=== PATIENT | female | born 1985 | race Caucasian/White ===

== ENCOUNTER → 2016-04-30 | Outpatient (CLI) | payer BC | END | disposition home or self-care (01) | LOC: C.PAPS 09:50 | PROVIDERS: ATTEND Obstetrics & Gynecology | DX: Z01.419 Encounter for gynecological examination (general) (routine) without abnormal findings (principal) ==

== ENCOUNTER → 2017-05-13 | Outpatient (CLI) | payer BC | END | disposition home or self-care (01) | LOC: C.PAPS 09:25 | PROVIDERS: ATTEND Physician Assistant | DX: Z01.419 Encounter for gynecological examination (general) (routine) without abnormal findings (principal) ==

== ENCOUNTER 2018-12-29 09:46 | Inpatient (IN) ==
[2018-12-29] MEDS ORDERED: OXYTOCIN 30 UNITS/500 ML BAG IV PRN ×3 (10:38→20:11)
[2018-12-29] MEDS: LACTATED RINGER'S 1,000 ML IV PRN ×3 (10:45→18:55)
[2018-12-29] MEDS ORDERED: fentaNYL citrate 100 MCG/2 ML VIAL ONE (10:47)
[2018-12-29] MEDS ORDERED: ePHEDrine sulfate 50 MG/ML AMP ONE (10:47)
[2018-12-29] MEDS ORDERED: fentaNYL 2MCG/ML ROPIV 1.25MG/ML 100 ML BAG EPI ONE (10:48)
[2018-12-29] MEDS ORDERED: BUPIVACAINE 0.25% 30 ML VIAL ONE (10:48)
[2018-12-29] MEDS ORDERED: PENICILLIN G POTASSIUM 6 MU in DEXTROSE 5% 250 ML IV STA (10:58)
[2018-12-29 11:03] LABS: Hematocrit (blood only) 35.7 % (37-47); Hemoglobin 12.9 g/dL (12.0-16.0); Mean Corpuscular Hemoglobin 35.2 pg (25-34); Mean Corpuscular Volume 97.5 fL (80-100); Mean Platelet Volume 9.7 fL (7.4-10.4); Platelet Count 160 K/uL (130-400); RDW Coefficient of Variation 13.3 % (11.5-14.5); RDW Standard Deviation 46.9 fL (36.4-46.3); Red Blood Count 3.66 M/uL (4.2-5.4); White Blood Count 12.06 K/uL (4.8-10.8)
--- NOTE | 2018-12-29 11:04 | History & Physical Report ---
Date of Service December 29, 2018 History of Present Illness Primary Care Provider: NO PCP 39w2d confirmed via LMP. Here for SROM today at 7AM, confirmed ferning on microscopy in hospital. No complications with current . Has been attending OB appointments regularly. Currently taking no medications other than vitamin. No chronic medical conditions. Previous vaginal delivery with no complications 4 years ago. No major surgeries. Hx of IVF treatments. Plan: Penicillin for GBS+ status, patient requested Epidural. Admitted to monitor progress; expect . Contractions: occurring every 4 minutes Fluid or Blood loss: gush of clear fluid loss this AM Movement: active Labs Blood type: B- Antibody screen: negative H.9 Hct: 35.7 Wbc: 12 Plt: 160 Rubella: immune VDRL/RPR: nonreactive Gonorrhea: neg Chlamydia: neg HIV: neg HBsAg: neg GBS: positive Glucose tolerance x2: failed second 50g test, WNL for 2 hour GTT Allergies Allergy/AdvReac Type Severity Reaction Status Date / Time amoxicillin AdvReac Mild GI SYMPTOMS Verified 12/29/18 10:05 Patient History Medical History Carrier of fragile X chromosome Infertility IVF X 2 History of cleft lip 1st son had- corrective surgery completed History of ovarian cyst History of varicella as a child Need for rhogam due to Rh negative mother Status post hysteroscopy Surgical History No history of previous surgery Family History Son Cleft lip and cleft palate, unspecified Grandmother (Paternal) Colorectal cancer Father Hypertension Grandmother (Maternal) Uterine cancer Mother Multiple gestation Social History Preferred Language: [place] Medical Parasitologist Required: No Beliefs That Will Affect Care: None marital status: Current Living Situation: Spouse and Family Current Living Situation Comment: lives with and son Other Information That Helps Us Care for You: No Feels Safe at Home: Yes Safety Concerns: Feels Safe At This Time Smoking Status: Never smoker Hx Alcohol Use: No Hx Substance Use: No Review of Systems no fever, no chills and no fatigue no cough, no dyspnea and no wheezing + edema; no chest pain and no calf pain no abdominal pain, no nausea, no vomiting, no cramping, no constipation and no diarrhea/loose stools no dysuria and no difficulty urinating no back pain no seizure-like activity and no headache(s) Physical Exam Constitutional: well developed and well nourished Respiratory: normal respiratory effort; no respiratory distress, no labored breathing and no cough Auscultation: no diminished lung sounds, no crackles, no rales, no rhonchi and no wheezes Cardiovascular: Rate/Rhythm: regular rate and regular rhythm Extremities: normal capillary refill and + pedal edema; no calf tenderness Gastrointestinal (Abdomen): Inspection/Auscultation: + abdomen distended and normal bowel sounds Percussion/Palpation: abdomen nontender and no guarding Genitourinary: Manual OB Exam: + cervical dilation 5 cm, + cervical effacement 100%, + station -1 and + amniotic fluid clear and ferning present OB Exam Monitor Tracing: + external FHT monitor used and + category I Cervical Exam per Dr. Hodge Results & Data Vital Signs (Past 12 Hours) Vital Signs Temp Resp 12/29/18 09:59 36.8 C 18 Monitoring External Monitor Category I heart tracing baseline HR 130-140 Moderate variability Accelerations present, No decelerations Tocodynamometer contractions every 3-4 minutes Supervising Physician Co-Signing Physician Notes Resident Physician Supervision Note: I interviewed and examined the patient. Discussed with Dr. Diamond and agree with findings and plan as documented in the note. Any exceptions or clarifications are listed here: with hx of previous , at term with rom. GBS +. Fetus category one. Admit. epidural on demand, arom of forebag, pitocin if indicated. Anticipate . Documented By: Griselda Hodge MD, FACOG Resident Activity Tracking Resident Involvement: Resident Care Provided Care Provided: OB Delivery
[2018-12-29 11:06] LABS: Mean Corpuscular Hgb Conc 36.1 g/dL (32-36)
--- NOTE | 2018-12-29 11:30 | Anesthesiology Consultation ---
Date of Service December 29, 2018 Assessment & Plan Chart Review Chart Review: Patient NOT seen in Pre Admission Testing and Acceptable Risk for Labor Epidural Consults Requested none ASA ASA2 Proposed Anesthesia Anesthesia Type: Labor Epidural and CSE Risk / Benefits Reviewed With: PT / POA / Parent / Guardian, Accepts Plan and Informed Consent Obtained History Height/Weight Height: 5 ft 5 in Weight: 84.822 kg Allergies Allergy/AdvReac Type Severity Reaction Status Date / Time amoxicillin AdvReac Mild GI SYMPTOMS Verified 12/29/18 10:05 Medications Home Medications Medication Instructions Recorded Confirmed Last Taken PNV cmb#95-ferrous fumarate-FA 1 tab PO DAILY 12/29/18 12/29/18 12/28/18 20:00 [] Active Medications Generic Name Dose Route Start Last Admin Trade Name Freq PRN Reason Stop Dose Admin Lactated Ringer's 1,000 mls @ 125 mls/hr 12/29/18 10:38 12/29/18 10:45 Lr IV 12/31/18 10:37 999 mls/hr .Q8H PRN Administration L&D Protocol Protocol Penicillin G Potassium 6 mu/ 262 mls @ 262 mls/hr 12/29/18 10:58 12/29/18 11:13 Dextrose IV 12/29/18 11:57 262 mls/hr NOW STA Administration NPO Date Last Intake of Fluids: 12/29/18 Time Last Intake of Fluids: 10:00 Date Last Intake of Solids: 12/29/18 Time Last Intake of Solids: 08:30 Past Medical History Medical History Carrier of fragile X chromosome Infertility IVF X 2 History of cleft lip 1st son had- corrective surgery completed History of ovarian cyst History of varicella as a child Need for rhogam due to Rh negative mother Status post hysteroscopy Exercise / Class Metabolic Activity II 4-5 Yardwork/Stairs/Walk up hill Past Family History Family History Son Cleft lip and cleft palate, unspecified Grandmother (Paternal) Colorectal cancer Father Hypertension Grandmother (Maternal) Uterine cancer Mother Multiple gestation Past Surgical History Surgical History No history of previous surgery Past Anesthesia History No Hx of Anesthesia Complications and No Family Hx of Anesthesia Complications History of PONV No Hx of PONV and No Hx of Motion Sickness Social History Smoking Status: Never smoker Hx Alcohol Use: No Hx Substance Use: No substance use type: does not use Review of Systems no chest pain or sob Physical Exam Vital Signs Last Vital Signs Temp 36.8 C 12/29/18 09:59 Pulse 93 H 12/29/18 11:29 Resp 18 12/29/18 09:59 BP 122/80 12/29/18 09:55 Pulse Ox 100 12/29/18 11:29 ENMT Mouth: no TMJ abnormality Thyromental Distance: > or= 3.5 Finger Breadths Mallampati Class: II Neck normal visual inspection Respiratory normal respiratory effort Auscultation: lungs clear to auscultation bilaterally Cardiovascular Rate/Rhythm: regular rate and regular rhythm Musculoskeletal Spine: normal cervical ROM Neurologic moves all extremities Psychiatric Orientation: alert and oriented x 3 Testing Laboratory Results 12/29/18 10:51
[2018-12-29] MEDS ORDERED: ONDANSETRON INJ 2 MG/ML 2 ML VIAL IV PRN (11:31)
[2018-12-29] MEDS ORDERED: NALBUPHINE HCL INJ 10 MG/ML AMP IV PRN (11:31)
[2018-12-29] MEDS ORDERED: ePHEDrine sulfate 50 MG/ML AMP IV PRN (11:31)
[2018-12-29] MEDS ORDERED: NALOXONE HCL 1 MG in SODIUM CHLORIDE 0.9% 1000ML 1,000 ML IV PRN (11:31)
[2018-12-29] MEDS ORDERED: fentaNYL 2MCG/ML ROPIV 1.25MG/ML 100 ML BAG EPI PRN (11:31)
[2018-12-29] MEDS ORDERED: NALOXONE HCL 0.4 MG/1 ML VIAL/CARP IV PRN (11:31)
[2018-12-29] MEDS ORDERED: DiphenhydrAMINE HCL 50 MG/ML VIAL IV PRN (11:31)
[2018-12-29] MEDS: PENICILLIN G POTASSIUM 3 MU in DEXTROSE 5% 100 ML IV PRN ×2 (15:15→19:02)
--- NOTE | 2018-12-29 16:12 | Labor Progress Brief Note ---
Date of Service December 29, 2018 Subjective comfortable Assessment & Plan (1) : continue current management. fetus category one. anticipate . Physical Exam Constitutional: WD/WN, vitals as above Psychiatric: A+Ox3, euthymic affect Genitourinary: cx--6-7/100/-1 toco--130s with mod variability, +accels, no decels Results & Data Vital Signs (Past 12 Hours) Vital Signs Temp Pulse Pulse Resp BP BP Pulse Ox 12/29/18 16:05 98 H 108/63 12/29/18 16:04 87 98 12/29/18 16:00 18 12/29/18 15:59 102 H 97 12/29/18 15:54 104 H 98 12/29/18 15:50 99 H 112/65 12/29/18 15:49 89 97 12/29/18 15:44 108 H 97 12/29/18 15:39 98 H 98 12/29/18 15:35 96 H 109/66 12/29/18 15:34 92 H 98 12/29/18 15:30 18 12/29/18 15:29 106 H 99 12/29/18 15:24 105 H 98 12/29/18 15:19 83 105/60 98 12/29/18 15:15 16 12/29/18 15:14 89 99 12/29/18 15:09 88 98 12/29/18 15:06 86 105/61 12/29/18 15:04 103 H 99 12/29/18 15:02 37.1 C 16 12/29/18 14:59 85 98 12/29/18 14:54 96 H 98 12/29/18 14:50 87 126/59 L 12/29/18 14:49 98 H 98 12/29/18 14:44 93 H 98 12/29/18 14:39 92 H 97 12/29/18 14:34 78 99/56 L 96 12/29/18 14:30 16 12/29/18 14:29 74 96 12/29/18 14:24 80 97 12/29/18 14:20 78 100/56 L 12/29/18 14:19 81 98 12/29/18 14:15 16 12/29/18 14:14 79 96 12/29/18 14:09 97 H 98 12/29/18 14:05 79 104/57 L 12/29/18 14:04 80 97 12/29/18 14:00 18 12/29/18 13:59 80 97 12/29/18 13:54 74 96 12/29/18 13:51 78 105/58 L 12/29/18 13:49 74 96 12/29/18 13:45 18 12/29/18 13:44 75 96 12/29/18 13:39 82 97 12/29/18 13:35 79 107/56 L 12/29/18 13:34 74 97 12/29/18 13:30 18 12/29/18 13:29 73 97 12/29/18 13:24 75 98 12/29/18 13:19 87 97 12/29/18 13:16 93 H 111/67 12/29/18 13:15 16 12/29/18 13:14 89 97 12/29/18 13:12 88 115/68 12/29/18 13:09 102 H 99 12/29/18 13:05 82 107/67 12/29/18 13:04 81 97 12/29/18 13:01 82 110/63 12/29/18 13:00 36.9 C 18 12/29/18 12:59 82 97 12/29/18 12:57 77 105/64 12/29/18 12:54 81 97 12/29/18 12:50 84 107/65 12/29/18 12:49 82 96 12/29/18 12:45 82 16 108/67 12/29/18 12:44 84 96 12/29/18 12:42 83 102/66 12/29/18 12:39 82 97 12/29/18 12:35 75 107/61 12/29/18 12:34 91 H 97 12/29/18 12:31 76 111/64 12/29/18 12:30 18 12/29/18 12:29 91 H 97 12/29/18 12:25 94 H 111/66 12/29/18 12:24 86 98 12/29/18 12:21 96 H 110/65 12/29/18 12:19 83 98 12/29/18 12:15 79 20 107/68 12/29/18 12:14 86 97 12/29/18 12:10 87 109/69 12/29/18 12:09 85 98 12/29/18 12:06 83 101/65 12/29/18 12:04 88 97 12/29/18 12:00 18 12/29/18 11:59 84 103/68 98 12/29/18 11:57 97 H 103/70 12/29/18 11:55 81 102/66 12/29/18 11:54 87 98 12/29/18 11:53 88 99/65 L 12/29/18 11:51 87 103/64 12/29/18 11:49 88 100/64 99 12/29/18 11:47 86 102/67 12/29/18 11:45 36.9 C 18 12/29/18 11:44 90 102/66 99 12/29/18 11:39 81 100 12/29/18 11:34 89 100 12/29/18 11:29 93 H 100 12/29/18 11:24 69 100 12/29/18 11:19 86 100 12/29/18 11:18 80 80 L 12/29/18 09:59 36.8 C 18 12/29/18 09:55 103 H 122/80
--- NOTE | 2018-12-29 18:22 | Labor Progress Brief Note ---
Date of Service December 29, 2018 Subjective feeling pressure and desire to push Assessment & Plan (1) : Will resume pushing. Pushed for about 30 minutes without good descent so labored down for a bit and now more symptomatic. Fetus reassuring. Physical Exam Constitutional: WD/WN, vitals as above Psychiatric: A+Ox3, euthymic affect Genitourinary: cx--c/c/+1, ?transverse toco--q2-3 min efm--130s with mod variablity, accels presents, no decels Results & Data Vital Signs (Past 12 Hours) Vital Signs Temp Pulse Pulse Resp BP BP Pulse Ox 12/29/18 18:19 93 H 112/60 98 12/29/18 18:14 98 H 98 12/29/18 18:09 93 H 97 12/29/18 18:04 92 H 114/60 97 12/29/18 17:59 100 H 97 12/29/18 17:54 118 H 98 12/29/18 17:49 90 113/62 97 12/29/18 17:44 91 H 97 12/29/18 17:39 102 H 98 12/29/18 17:35 101 H 120/63 12/29/18 17:34 98 H 99 12/29/18 17:30 16 12/29/18 17:29 94 H 97 12/29/18 17:24 92 H 97 12/29/18 17:21 93 H 104/59 L 12/29/18 17:19 84 97 12/29/18 17:14 85 97 12/29/18 17:09 106 H 99 12/29/18 17:04 102 H 95/54 L 98 12/29/18 17:00 37.2 C 18 12/29/18 16:59 88 97 12/29/18 16:54 85 98 12/29/18 16:51 93 H 102/55 L 12/29/18 16:49 89 98 12/29/18 16:44 92 H 97 12/29/18 16:39 85 97 12/29/18 16:36 81 101/57 L 12/29/18 16:34 85 98 12/29/18 16:30 18 12/29/18 16:29 82 98 12/29/18 16:24 79 97 12/29/18 16:21 87 99/57 L 12/29/18 16:19 86 97 12/29/18 16:14 99 H 97 12/29/18 16:09 92 H 98 12/29/18 16:05 98 H 108/63 12/29/18 16:04 87 98 12/29/18 16:00 18 12/29/18 15:59 102 H 97 12/29/18 15:54 104 H 98 12/29/18 15:50 99 H 112/65 12/29/18 15:49 89 97 12/29/18 15:44 108 H 97 12/29/18 15:39 98 H 98 12/29/18 15:35 96 H 109/66 12/29/18 15:34 92 H 98 12/29/18 15:30 18 12/29/18 15:29 106 H 99 12/29/18 15:24 105 H 98 12/29/18 15:19 83 105/60 98 12/29/18 15:15 16 12/29/18 15:14 89 99 12/29/18 15:09 88 98 12/29/18 15:06 86 105/61 12/29/18 15:04 103 H 99 12/29/18 15:02 37.1 C 16 12/29/18 14:59 85 98 12/29/18 14:54 96 H 98 12/29/18 14:50 87 126/59 L 12/29/18 14:49 98 H 98 12/29/18 14:44 93 H 98 12/29/18 14:39 92 H 97 12/29/18 14:34 78 99/56 L 96 12/29/18 14:30 16 12/29/18 14:29 74 96 12/29/18 14:24 80 97 12/29/18 14:20 78 100/56 L 12/29/18 14:19 81 98 12/29/18 14:15 16 12/29/18 14:14 79 96 12/29/18 14:09 97 H 98 12/29/18 14:05 79 104/57 L 12/29/18 14:04 80 97 12/29/18 14:00 18 12/29/18 13:59 80 97 12/29/18 13:54 74 96 12/29/18 13:51 78 105/58 L 12/29/18 13:49 74 96 12/29/18 13:45 18 12/29/18 13:44 75 96 12/29/18 13:39 82 97 12/29/18 13:35 79 107/56 L 12/29/18 13:34 74 97 12/29/18 13:30 18 12/29/18 13:29 73 97 12/29/18 13:24 75 98 12/29/18 13:19 87 97 12/29/18 13:16 93 H 111/67 12/29/18 13:15 16 12/29/18 13:14 89 97 12/29/18 13:12 88 115/68 12/29/18 13:09 102 H 99 12/29/18 13:05 82 107/67 12/29/18 13:04 81 97 12/29/18 13:01 82 110/63 12/29/18 13:00 36.9 C 18 12/29/18 12:59 82 97 12/29/18 12:57 77 105/64 12/29/18 12:54 81 97 12/29/18 12:50 84 107/65 12/29/18 12:49 82 96 12/29/18 12:45 82 16 108/67 12/29/18 12:44 84 96 12/29/18 12:42 83 102/66 12/29/18 12:39 82 97 12/29/18 12:35 75 107/61 12/29/18 12:34 91 H 97 12/29/18 12:31 76 111/64 12/29/18 12:30 18 12/29/18 12:29 91 H 97 12/29/18 12:25 94 H 111/66 12/29/18 12:24 86 98 12/29/18 12:21 96 H 110/65 12/29/18 12:19 83 98 12/29/18 12:15 79 20 107/68 12/29/18 12:14 86 97 12/29/18 12:10 87 109/69 12/29/18 12:09 85 98 12/29/18 12:06 83 101/65 12/29/18 12:04 88 97 12/29/18 12:00 18 12/29/18 11:59 84 103/68 98 12/29/18 11:57 97 H 103/70 12/29/18 11:55 81 102/66 12/29/18 11:54 87 98 12/29/18 11:53 88 99/65 L 12/29/18 11:51 87 103/64 12/29/18 11:49 88 100/64 99 12/29/18 11:47 86 102/67 12/29/18 11:45 36.9 C 18 12/29/18 11:44 90 102/66 99 12/29/18 11:39 81 100 12/29/18 11:34 89 100 12/29/18 11:29 93 H 100 12/29/18 11:24 69 100 12/29/18 11:19 86 100 12/29/18 11:18 80 80 L 12/29/18 09:59 36.8 C 18 12/29/18 09:55 103 H 122/80
[2018-12-29] MEDS ORDERED: METHYLERGONOVINE MALEATE 0.2 MG/ML AMP ONE (19:43)
[2018-12-29] MEDS ORDERED: OXYCODONE/ACETAMINOPHEN 5mg/325mg TAB PO PRN (19:55)
[2018-12-29] MEDS ORDERED: ACETAMINOPHEN 325 MG TAB PO PRN (19:55)
--- NOTE | 2018-12-29 19:59 | Delivery Summary ---
Vaginal Delivery Summary Date of Service December 29, 2018 Vaginal Delivery Summary Pre-operative Diagnosis: at 39 weeks srom Post-operative Diagnosis: same Procedure: epidural rupture of forebag pitocin augmentation second degree laceration with repair. EBL: 450cc Anesthesia: epidural Procedure: The patient pushed for a little over an hour to deliver a viable male in ebony position. The anterior shoulder was immediately delivered and the rest of the was then delivered without difficulty. The baby was vigorous. The nose and mouth were again bulb suctioned and the infant was placed in the maternal abdomen for drying and attention. Cord was clamped and cut at 30 sec of life. Cord blood obtained. Placenta delivered by manual extraction from the vagina, intact with a three vessel cord. Uterus explored and no POCs noted. Cervix/sulci/rectum were intact. A second degree perineal laceration was repaired in the normal standard fashion. Hemostasis obtained with dilute pitocin and fundal massage, IM metergine and 600mcg of cytotec rectally. Apgars were 8/9. Mother and baby doing well at the end of the delivery.
[2018-12-29] MEDS ORDERED: HYDROCORTISONE ACETATE 25 MG SUPP PR PRN (20:11)
[2018-12-29] MEDS ORDERED: SUPERCREAM 0.870% 15 GM JAR EXT PRN (20:11)
[2018-12-29] MEDS ORDERED: BENZOCAINE 20% AER SPR 82.5 GM CAN EXT PRN (20:11)
[2018-12-29] MEDS ORDERED: METHYLERGONOVINE MALEATE 0.2 MG/ML AMP IM ONE (20:11)
[2018-12-29] MEDS ORDERED: miSOPROStoL 200 MCG TAB PR ONE (20:11)
[2018-12-29] MEDS ORDERED: bisacodyL 10 MG SUPP PR PRN (20:11)
[2018-12-29] MEDS ORDERED: DIPHTHERIA/TETANUS/PERTUSSIS 0.5 ML SYR/VIAL IM ONE (20:11)
[2018-12-29] MEDS: IBUPROFEN 600 MG TAB PO PRN (20:42)
--- NOTE | 2018-12-29 21:53 | Anesthesia Procedure Note ---
Date of Service December 29, 2018 Anesthesia Post Epidural Note Vital Signs Vital Signs: Temp Pulse Resp BP Pulse Ox 36.7 C 77 18 107/56 L 97 12/29/18 20:50 12/29/18 21:49 12/29/18 21:19 12/29/18 21:49 12/29/18 20:59 Pain Intensity Bilateral Abdomen: Pain Intensity: 2 Notes Mental Status: alert / awake / arousable and participated in evaluation Nausea / Vomiting: adequately controlled Pain: adequately controlled Airway Patency, RR, SpO2: stable & adequate BP & HR: stable & adequate Hydration State: stable & adequate Neuraxial Anesthesia: was administered and sensory block is resolving Anesthetic Complications: no major complications apparent and Pt Satisfied with anesthetic care Epidural: Removed without complications and With tip intact
[2018-12-29] MEDS: DOCUSATE SODIUM 100 MG CAP PO SCH (22:04)
[2018-12-30] MEDS: IBUPROFEN 600 MG TAB PO PRN ×5 (01:52→18:48)
[2018-12-30 06:31] LABS: Hematocrit (blood only) 32.6 % (37-47); Hemoglobin 11.5 g/dL (12.0-16.0)
--- NOTE | 2018-12-30 06:33 | Obstetrical Progress Note ---
Date of Service December 30, 2018 Assessment & Plan (1) : PPD1, doing well. Hg dropped from 12.9 to 11.5. Will continue monitoring today. Present on Admission?: Yes (2) GBS carrier: received 2 doses Penicillin G 3u and 1 dose Penicillin G 6u prior to delivery. Present on Admission?: Yes Supervising Physician Co-Signing Physician Notes Resident Physician Supervision Note: I interviewed and examined the patient. Discussed with Dr. Diamond and agree with findings and plan as documented in the note. Any exceptions or clarifications are listed here: Doing well. Routine care. Documented By: Griselda Hodge MD, FACOG Subjective GBS+ female who presented yesterday for SROM and progressed to . Received 2 doses of Pen G 3u and 1 dose of Pen G 6u prior to delivery. Doing well this AM. Has ambulated and voided without pain or burning. Has not passed gas or had a bowel movement. Tolerated dinner last night without nausea or vomiting. Still having lochail discharge however appears to be decreasing n volume. baby. Pain well controlled. denies fevers/chills, SOB, CP, breast pain, UTI sx, headache. Review of Systems Constitutional: no fever, no chills and no fatigue Respiratory: no cough and no dyspnea Cardiovascular: no chest pain, no syncope, no edema and no calf pain Gastrointestinal: + cramping; no abdominal pain, no nausea, no vomiting, no constipation and no diarrhea/loose stools Genitourinary: no dysuria and no difficulty urinating Neurologic: no headache(s) Physical Exam Constitutional: well developed and well nourished Respiratory: normal respiratory effort; no respiratory distress, no labored breathing and no cough Auscultation: no diminished lung sounds, no crackles, no rales, no rhonchi and no wheezes Cardiovascular: Rate/Rhythm: regular rate and regular rhythm Extremities: normal capillary refill and + pedal edema; no calf tenderness Gastrointestinal (Abdomen): Inspection/Auscultation: + abdomen distended and normal bowel sounds Percussion/Palpation: abdomen nontender and no guarding Genitourinary: OB Exam Abdomen: + fundal height Fundus: + firm and + relation to umbilicus (inferior to umbilicus); not tender Results & Data Vital Signs (Past 12 Hours) Vital Signs Temp Pulse Pulse Resp BP BP Pulse Ox 12/30/18 04:45 36.9 C 82 18 112/68 12/29/18 23:15 37.5 C 96 H 18 109/61 12/29/18 22:04 86 105/57 L 12/29/18 21:50 36.8 C 18 12/29/18 21:49 77 107/56 L 12/29/18 21:34 96 H 105/52 L 12/29/18 21:19 90 18 120/54 L 12/29/18 21:04 82 113/58 L 12/29/18 20:59 91 H 97 12/29/18 20:54 92 H 97 12/29/18 20:50 36.7 C 86 18 93 12/29/18 20:49 83 115/57 L 97 12/29/18 20:44 83 97 12/29/18 20:39 85 98 12/29/18 20:35 93 H 16 135/61 12/29/18 20:34 88 95 12/29/18 20:29 83 97 12/29/18 20:24 95 H 98 12/29/18 20:19 101 H 16 127/60 98 12/29/18 20:14 95 H 98 12/29/18 20:13 99 H 91 12/29/18 20:09 95 H 98 12/29/18 20:07 99 H 91 12/29/18 20:04 99 H 18 119/61 96 12/29/18 19:59 92 H 96 12/29/18 19:54 90 97 12/29/18 19:52 86 93 12/29/18 19:50 36.8 C 89 18 111/58 L 12/29/18 19:49 96 H 96 12/29/18 19:44 99 H 110/55 L 94 12/29/18 19:43 94 H 94 12/29/18 19:39 91 H 94 12/29/18 19:34 107 H 90 12/29/18 19:33 116 H 90 12/29/18 19:29 104 H 97 12/29/18 19:24 78 96 12/29/18 19:21 81 112/59 L 12/29/18 19:19 116 H 95 12/29/18 19:14 89 96 12/29/18 19:11 36.8 C 20 12/29/18 19:09 129 H 97 12/29/18 19:05 92 H 123/65 12/29/18 19:04 81 97 12/29/18 19:00 20 12/29/18 18:59 127 H 98 12/29/18 18:54 113 H 98 12/29/18 18:51 79 129/58 L 12/29/18 18:49 88 96 12/29/18 18:44 85 97 12/29/18 18:39 86 96 12/29/18 18:35 105 H 139/77 12/29/18 18:34 81 96 12/29/18 18:30 22 12/29/18 18:29 93 H 96 PG Care Time/CCT Total # of Minutes Spent Total Time Spent with Patient: Total time spent is greater than 50% in coordina tion of care (as documented) at patient's floor/unit and/or counseling patient: Resident Activity Tracking Resident Involvement: Resident Care Provided Care Provided: OB Delivery
[2018-12-30] MEDS ORDERED: PRENATAL VITAMIN 1 TAB PO SCH (08:00)
[2018-12-30] MEDS: DOCUSATE SODIUM 100 MG CAP PO SCH (08:03)
[2018-12-30] MEDS ORDERED: bisacodyL 5 MG TABEC PO SCH (20:00)
== END 2018-12-30 20:00 | disposition home or self-care (01) | DRG 807 ==
LOC: OPB 09:46 → 4S1 09:58 → 4S2 22:25